=== PATIENT | female | born 1955 | race Caucasian/White ===

== ENCOUNTER 2021-09-06 06:27 | Day surgery (SDC) | payer OTHER ==
[~2021-09-06] VITALS: Ht 152.4 cm; Wt 78.0 kg
[2021-09-06] MEDS: fentaNYL CITRATE/PF 100 MCG/2 ML AMP ONE ×2 (09:41→09:44)
[2021-09-06] MEDS: MIDAZOLAM HCL 5 MG/5 ML VIAL ONE ×4 (09:41→09:58)
[2021-09-06 16:38] VITALS: BP_SYST 111
== END 2021-09-06 11:50 | disposition home or self-care (01) ==
LOC: SDS 06:27 → SMU 06:28 → SDS 11:50
PROVIDERS: ATTEND Internal Medicine
DX: Z12.11 Encounter for screening for malignant neoplasm of colon (principal); R10.9 Unspecified abdominal pain; K52.9 Noninfective gastroenteritis and colitis, unspecified; K29.50 Unspecified chronic gastritis without bleeding; K29.80 Duodenitis without bleeding; R19.4 Change in bowel habit; K57.30 Diverticulosis of large intestine without perforation or abscess without bleeding; E78.00 Pure hypercholesterolemia, unspecified; Z79.899 Other long term (current) drug therapy; Z20.822 Contact with and (suspected) exposure to COVID-19
CPT/HCPCS: 36415 ×2; 43239; 45380; 87081; 87426; 88305; 88312; 88313; 99152; 99153; G0378; J2250; J3010; U0003